=== PATIENT | male | born 1985 ===

== ENCOUNTER 2019-12-12 03:01 | Emergency (ER) | payer OTHER ==
[~2019-12-12] VITALS: Ht 182.9 cm; Wt 106.6 kg
[~2019-12-12 03:01] MED LIST: AMOX1TAB5 PO; BELLADONNA; CLEOCIN HCL150 MG; DESPEC; MUCINEX; NASAL ALLERG40 MG/ML; ORASEP SPRAY30 ML; XANAX XR0.5 MG; [UNRECOGNIZED DRUG - OTHER]
[2019-12-12] MEDS ORDERED: CLONAZEPAM0.5 M1 (03:10)
[2019-12-12] MEDS ORDERED: AIRBORNE EFFER1 EACH PO (10:22)
[2019-12-12] MEDS ORDERED: PEPCID AC20 MG PO (10:22)
[2019-12-12] MEDS ORDERED: OSEL75CA PO (10:22)
[2019-12-12] MEDS ORDERED: ONDANSETRON ODT4 MG SL (10:22)
[2019-12-12] MEDS ORDERED: VENTOLIN HFA18 GM IH (10:41)
[2019-12-12] MEDS ORDERED: TESSALON PERLE100 M1 PO (10:41)
[2019-12-12] MEDS ORDERED: MUCINEX DM ER1 EAC1 PO (10:41)
== END 2019-12-12 11:02 ==
LOC: ER 03:01
DX: J11.1 Influenza due to unidentified influenza virus with other respiratory manifestations (principal); J31.2 Chronic pharyngitis; J32.8 Other chronic sinusitis